=== PATIENT | female | born 1950 | race Caucasian/White ===

== ENCOUNTER 2021-02-23 15:54 | Inpatient (IN) | payer OTHER ==
[~2021-02-23] VITALS: Ht 170.2 cm; Wt 88.9 kg
[2021-02-23] VITALS (14 sets, daily range): BP systolic 146–179; BP diastolic 64–137
[2021-02-23 16:55] LABS: ABSOLUTE NEUTROPHILS 4.6 thou/uL (1.4-8.2); BASOPHILS 0.9 % (0.0-2.0); EOSINOPHILS 2.2 % (0.0-3.0); HEMATOCRIT 43.4 % (37.0-47.0); LYMPHOCYTES 27.3 % (24.0-44.0); MCH 31.5 pg (26.0-34.0); MCHC 34.6 g/dL (28.0-37.0); MCV 90.9 fL (80.0-100.0); MONOCYTES 9.2 % (1.0-8.0); PLATELET COUNT 186 thou/uL (150-400); POLYS 60.4 % (36.0-66.0); RBC 4.78 mil/uL (4.20-5.00); RDW 14.3 % (10.5-14.5); WBC 7.6 thou/uL (4.0-11.0)
[2021-02-23 17:05] LABS: ANION GAP 13 mmol/L (7-16); BUN 24 mg/dL (7-18); CALCIUM 9.3 mg/dL (8.5-10.1); CHLORIDE 99 mmol/L (98-107); CO2 24 mmol/L (21-32); CREATININE 1.4 mg/dL (0.6-1.0); GLUCOSE 117 mg/dL (74-106); POTASSIUM 3.4 mmol/L (3.5-5.1); SODIUM 136 mmol/L (136-145)
[2021-02-23 17:14] LABS: ALBUMIN 3.9 g/dL (3.4-5.0); SGOT 16 U/L (15-37); SGPT 13 U/L (30-65); TOTAL BILIRUBIN 0.4 mg/dL (0.2-1.0); TOTAL PROTEIN 8.3 g/dL (6.4-8.2); TROPONIN-I <0.06 ng/mL (<0.06)
[2021-02-23] MEDS ORDERED: ZESTRIL20 MG PO (21:28)
[2021-02-23] MEDS ORDERED: BISOPROLOL-HCT1 EAC2 PO (21:30)
[2021-02-23] MEDS ORDERED: PRAVASTATIN SOD20 MG PO (21:31)
[2021-02-23] MEDS ORDERED: NEURONTIN300 MG PO (21:31)
--- NOTE | 2021-02-23 22:00 | NUR ---
PT ARRIVAL TO UNIT VIA CART ON 5MG/HR CARDENE, A&OX4, NO PAIN, ABLE TO ANSWER ALL ADMISSION QUESTIONS
[2021-02-24] VITALS (9 sets, daily range): BP systolic 141–195; BP diastolic 77–105
[2021-02-24 02:32] LABS: HEMATOCRIT 41.6 % (37.0-47.0); HEMOGLOBIN 14.2 gm/dL (12.0-15.0); MCH 31.1 pg (26.0-34.0); MCHC 34.1 g/dL (28.0-37.0); MCV 91.3 fL (80.0-100.0); RBC 4.55 mil/uL (4.20-5.00); RDW 14.1 % (10.5-14.5)
[2021-02-24 03:04] LABS: CALCIUM 8.7 mg/dL (8.5-10.1); CREATININE 1.2 mg/dL (0.6-1.0); POTASSIUM 3.2 mmol/L (3.5-5.1)
[2021-02-24 04:52] LABS: CHOLESTEROL 222 mg/dL (<200); HDL CHOLESTEROL 44 mg/dL (>40); LDL CHOLESTEROL 154 mg/dL (<100); TRIGLYCERIDE 121 mg/dL (<150); VLDL 24 mg/dL (<40)
[2021-02-24 04:55] LABS: SERUM ASSESSMENT Clear
--- NOTE | 2021-02-24 07:14 | EKG ---
[facility] [place] [address] ELECTROCARDIOGRAM REPORT Name: ROSETTE MARTINEZ Room #: 240-P ADM IN M.R.#: [id number] Admission: 02/23/21 Attend Phys: Ryan Concepcion Discharge: Date of : 54 Report #: [id number] [facility] ED Test Date: 2021-02-23 Test Time: 18:09:51 Pat Name: ROSETTE MARTINEZ Department: Room: 240 Gender: F Director Of Video Analytics: DOUG : 1950 Requested By: Ana Loya Order Number: [id number] MD: Jeramie Escobar Measurements Intervals [place] Rate: 81 P: 30 MN: 138 QRS: -45 QRSD: 136 T: -24 QT: 402 QTc: 467 Interpretive Statements Sinus rhythm Probable left atrial enlargement RBBB and LAFB No previous ECG available for comparison Electronically Signed On 02-24-2021 7:14:10 CDT by Jeramie Escobar [email or web address] <ELECTRONICALLY SIGNED> By: Jeramie Escobar MD, [facility] 02/24/21 0714 1809 1809 Jeramie Escobar MD, FACC /EPI
--- NOTE | 2021-02-24 14:46 | NUR ---
Discussed during [facility] rounds, possible ready for dc tomorrow. possible move out of icu. Changed IV med to home po medication for HTN. Will cont following as needed for dc needs.
--- NOTE | 2021-02-24 18:26 | NUR ---
patient transfers with spouse and all belongings to room 433 via wheelchair. occompanied by legal internship.
--- NOTE | 2021-02-25 01:55 | NUR ---
ASSUMED PT CARE AT 1900. PT WAS LYING IN BED WATCHING TV, INTRODUCED SLEF TO PT. PT WAS PLEASANT AND COOPERATIVE. PT DID NOT EXPRESS ANY CONCERNS AND NO VISIBLE SIGN OF DISTRESS WAS NOTED. WHITE BOARD WAS UPDATED. BED WAS ONLOWEST LOCKED POSITION WITH BED ALARM ON AND CALL LIGHT WAS WITHIN REACH.
[2021-02-25 04:52] VITALS: BP 158/79
[2021-02-25 07:55] VITALS: BP 158/81
--- NOTE | 2021-02-25 08:01 | NUR ---
PT'S BP ELEVATED AT SHIFT CHANGE,WAS BETTER ON RECHECK.PT VOICED CONCERN ABOUT GETTING UP BY HERSELF,PT NOTIFIED THAT THE AM NURSE WILL ASSESS HER AND DETERMINE IF SHE IS SAFE TO GET OOB BY HERSELF.
[2021-02-25] MEDS ORDERED: BENADRYL ALLERG25 MG PO (08:27)
[2021-02-25] MEDS ORDERED: COREG6.25 MG PO (08:27)
--- NOTE | 2021-02-25 09:45 | NUR ---
High nutrition screen risk for wt loss and poor appetite. Admit with htn crisis, pt had been off medication due to rash. Visit this am, eating well. No significant wt loss. Had no questions regarding diet. Low nutrition risk
[2021-02-25 10:05] VITALS: BP 158/81
--- NOTE | 2021-02-25 11:06 | NUR ---
on-going assessment: CM REVIEWED CHART AND SPOKE WITH PATIENT. PT IS FROM HOME WHERE SHE LIVES WITH HER . PT REPORTS HAVING ABOUT 5 STEPS WITH HANDRAILS TO ENTER THE HOME AND NO STEPS SHE HAS TO USE INSIDE. PT IS NORMALLY FULLY INDEPENDENT WITH ADLS AND AMBULATION. PT HAS NO DME OR THE NEED FOR IT. PT REPORTS HAVING A PCP. PT DENIES ANY HX OF HH. CM DISCUSSED ROLE. PT DOES NOT ANTICIPATE HAVING ANY NEEDS AT DISCHARGE. PLANS ARE HOME TODAY.
--- NOTE | 2021-02-25 12:30 | NUR ---
Received awake on bed. Due medications given as prescribed, able to swallow meds w/o difficulty. On room air. Vital signs stable, latest BP relayed to physician. On MS, not on telemetry; no complains and signs of chest pain, crushing sensation and heaviness. Assisted in ADLs. On heart healthy diet- tolerating well; no nausea, no vomiting and no abdominal pain noted. With SL at L AC. No complains of pain made during assessment. On standby assist; using gait belt. Falls bundle in place. To continue monitoring patient. Pt seen and examined by Dr Concepcion this AM; discharge orders made. Discharge instructions, follow up schedule given and instructed. Discharge forms signed. Pt fetched by her . IV discontinued. No environmental monitoring technician noted. Pt brought out of the unit via wheelchair with her personal belongings. Discharged.
== END 2021-02-25 12:09 | disposition home or self-care (01) | DRG 305 ==
LOC: ER 15:54 → ICU 21:06 → EROBS 21:06 → ICU 21:33 → 4S 02-24 15:57
PROVIDERS: Emergency Medicine; Nurse Practitioner Family; ADMIT Hospitalist; ATTEND Hospitalist
DX: I16.0 Hypertensive urgency (principal); N17.9 Acute kidney failure, unspecified; G25.81 Restless legs syndrome; I10 Essential (primary) hypertension; E78.5 Hyperlipidemia, unspecified; L50.9 Urticaria, unspecified; F17.210 Nicotine dependence, cigarettes, uncomplicated; Z88.8 Allergy status to other drugs, medicaments and biological substances; Z83.3 Family history of diabetes mellitus; Z82.49 Family history of ischemic heart disease and other diseases of the circulatory system; Z79.899 Other long term (current) drug therapy
CPT/HCPCS: 10078; 10102; 50455